=== PATIENT | male | born 1965 | race Caucasian/White ===

== ENCOUNTER 2016-11-21 08:17 | Outpatient (CLI) | payer MEDICARE, MEDICAID | END 2016-11-21 08:18 | disposition home or self-care (01) | DX: K80.20 Calculus of gallbladder without cholecystitis without obstruction (principal); R14.0 Abdominal distension (gaseous); R10.9 Unspecified abdominal pain; K21.9 Gastro-esophageal reflux disease without esophagitis ==

== ENCOUNTER 2016-11-26 08:29 | Day surgery (SDC) | payer MEDICARE, MEDICAID ==
[2016-11-26] MEDS ORDERED: LACTATED RINGERS 1,000 ML IV ONE (08:37)
[2016-11-26] MEDS ORDERED: fentaNYL 250 MCG/5 ML VIAL IVP ONE (10:24)
[2016-11-26] MEDS ORDERED: MIDAZOLAM 2 MG/2 ML VIAL IVP ONE (10:24)
[2016-11-26] MEDS ORDERED: diphenhydrAMINE INJ 50 MG/ML VIAL IVP ONE (10:24)
== END 2016-11-26 08:30 | disposition home or self-care (01) ==
PROC: 0DB98ZX Excision of Duodenum, Via Natural or Artificial Opening Endoscopic, Diagnostic (ICD-10-PCS; 2016-11-26)
PROC: 0DB68ZX Excision of Stomach, Via Natural or Artificial Opening Endoscopic, Diagnostic (ICD-10-PCS; 2016-11-26)
PROC: 0DBN8ZZ Excision of Sigmoid Colon, Via Natural or Artificial Opening Endoscopic (ICD-10-PCS; principal; 2016-11-26 09:30)
PROC: 0DBE8ZX Excision of Large Intestine, Via Natural or Artificial Opening Endoscopic, Diagnostic (ICD-10-PCS; 2016-11-26 09:30)
DX: R10.9 Unspecified abdominal pain (principal); D12.5 Benign neoplasm of sigmoid colon; K57.30 Diverticulosis of large intestine without perforation or abscess without bleeding; K21.9 Gastro-esophageal reflux disease without esophagitis; I10 Essential (primary) hypertension
CPT/HCPCS: 43239; 45380; 45385; J3010; J7120

== ENCOUNTER 2017-07-30 06:40 | Outpatient (CLI) | payer MEDICARE, MEDICAID | END 2017-07-30 06:41 | disposition home or self-care (01) | LOC: LAB.WCP 06:40 | PROVIDERS: ATTEND Family Medicine | DX: B83.9 Helminthiasis, unspecified (principal) | CPT/HCPCS: 87177; 87209 ==

== ENCOUNTER 2020-05-30 14:35 | Outpatient (CLI) | payer MEDICARE, MEDICAID ==
[2020-05-30 18:25] LABS: BASOPHILS # (AUTO) 0.1 10^3/uL (0.0-0.1); EOSINOPHILS # (AUTO) 0.4 10^3/uL (0.0-0.7); HGB - HEMOGLOBIN 16.6 g/dL (14.0-18.0); LYMPHOCYTES # (AUTO) 2.4 10^3/uL (1.5-3.5); LYMPHOCYTES % (AUTO) 31.9 %; MEAN CORPUSCULAR HEMOGLOBIN 33.1 pg (27.0-31.0); MEAN CORPUSCULAR HGB CONC 33.9 g/dL (32.0-36.0); MEAN CORPUSCULAR VOLUME 97.8 fL (80.0-94.0); MEAN PLATELET VOLUME 10.3 fL (7.4-11.4); MONOCYTES # (AUTO) 0.5 10^3/uL (0.0-1.0); MONOCYTES % (AUTO) 6.8 %; NEUTROPHILS # (AUTO) 4.1 10^3/uL (1.5-6.6); PLT - PLATELET COUNT 318 10^3/uL (130-450); RED BLOOD COUNT 5.01 10^6/uL (4.70-6.10); RED CELL DISTRIBUTION WIDTH 13.1 % (12.0-15.0); WHITE BLOOD COUNT 7.4 x10^3/uL (4.8-10.8)
[2020-05-30 19:05] LABS: ALBUMIN 4.3 g/dL (3.2-5.5); ALBUMIN/GLOBULIN RATIO 1.5 (1.0-2.2); BILIRUBIN,TOTAL 0.4 mg/dL (0.2-1.0); CALCIUM 9.2 mg/dL (8.5-10.3); TOTAL PROTEIN 7.2 g/dL (6.7-8.2)
[2020-05-31 15:48] LABS: HEPATITIS C ANTIBODY NON-REACTIVE (NON-REACTIVE)
== END 2020-05-30 23:59 | disposition home or self-care (01) ==
LOC: LAB.WCP 14:35
PROVIDERS: ATTEND Physician Assistant
DX: I10 Essential (primary) hypertension (principal); R60.9 Edema, unspecified; Z12.5 Encounter for screening for malignant neoplasm of prostate; R06.09 Other forms of dyspnea; Z86.59 Personal history of other mental and behavioral disorders
CPT/HCPCS: 36415; 80053; 83880; 85025; 86803; G0103; 84153

== ENCOUNTER 2022-09-28 12:07 | Emergency (ER) | payer MEDICAID, MEDICARE ==
[2022-09-28 13:19] LABS: BASOPHILS # (AUTO) 0.1 10^3/uL (0.0-0.1); EOSINOPHILS # (AUTO) 0.5 10^3/uL (0.0-0.7); EOSINOPHILS % (AUTO) 6.9 %; LYMPHOCYTES # (AUTO) 2.2 10^3/uL (1.5-3.5); LYMPHOCYTES % (AUTO) 27.4 %; MEAN CORPUSCULAR HEMOGLOBIN 31.6 pg (27.0-31.0); MEAN CORPUSCULAR HGB CONC 33.3 g/dL (32.0-36.0); MEAN CORPUSCULAR VOLUME 94.7 fL (80.0-94.0); MEAN PLATELET VOLUME 9.5 fL (7.4-11.4); MONOCYTES # (AUTO) 0.4 10^3/uL (0.0-1.0); MONOCYTES % (AUTO) 5.5 %; NEUTROPHILS # (AUTO) 4.6 10^3/uL (1.5-6.6); NEUTROPHILS % (AUTO) 59.1 %; PLT - PLATELET COUNT 347 10^3/uL (130-450); RED BLOOD COUNT 5.07 10^6/uL (4.70-6.10); RED CELL DISTRIBUTION WIDTH 13.7 % (12.0-15.0); WHITE BLOOD COUNT 7.9 x10^3/uL (4.8-10.8)
[2022-09-28 13:33] LABS: ALBUMIN 4.2 g/dL (3.2-5.5); ALBUMIN/GLOBULIN RATIO 1.2 (1.0-2.2); BILIRUBIN,TOTAL 0.8 mg/dL (0.2-1.0); CALCIUM 9.9 mg/dL (8.5-10.3); CREATININE 1.1 mg/dL (0.6-1.2); POTASSIUM 3.8 mmol/L (3.5-5.0); TOTAL PROTEIN 7.8 g/dL (6.7-8.2)
--- NOTE | 2022-09-28 13:52 | XRAY Report ---
PROCEDURE: Chest 1 View X-Ray INDICATIONS: Chest Pain TECHNIQUE: One view of the chest was acquired. COMPARISON: None. FINDINGS: Surgical changes and devices: None. Lungs and pleura: No pleural effusions or pneumothorax. Lungs are clear. Mediastinum: Mild tortuosity of the thoracic aorta. Cardiac silhouette is within normal limits in si ze. Bones and chest wall: No suspicious bony lesions. Overlying soft tissues appear unremarkable. IMPRESSION: No acute cardiopulmonary abnormality. Reviewed by: Benson Patel MD on 09/28/2022 1:50 PM PST Approved by: Benson Patel MD on 09/28/2022 1:50 PM PST Station ID: [id number]
[2022-09-28 15:20] VITALS: BP 176/119
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
== END 2022-09-28 15:26 | disposition home or self-care (01) ==
LOC: ED 12:07
DX: J44.1 Chronic obstructive pulmonary disease with (acute) exacerbation (principal); K21.9 Gastro-esophageal reflux disease without esophagitis; Z91.138 Patient's unintentional underdosing of medication regimen for other reason; Y63.6 Underdosing and nonadministration of necessary drug, medicament or biological substance; Y82.9 Unspecified medical devices associated with adverse incidents
CPT/HCPCS: 36415; 80053; 83690; 83880; 84484; 85025; 93005; 99283; 99284

== ENCOUNTER 2024-02-19 16:57 | Inpatient (IN) | payer MEDICARE ==
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
[2024-02-19 17:46] LABS: BASOPHILS % (AUTO) 0.2 %; EOSINOPHILS % (AUTO) 0.2 %; HGB - HEMOGLOBIN 16.7 g/dL (14.0-18.0); LYMPHOCYTES % (AUTO) 4.2 %; MEAN CORPUSCULAR HEMOGLOBIN 32.1 pg (27.0-31.0); MEAN CORPUSCULAR HGB CONC 32.7 g/dL (32.0-36.0); MEAN CORPUSCULAR VOLUME 98.1 fL (80.0-94.0); MEAN PLATELET VOLUME 9.6 fL (7.4-11.4); MONOCYTES % (AUTO) 5.3 %; NEUTROPHILS % (AUTO) 89.2 %; PLT - PLATELET COUNT 303 10^3/uL (130-450); RED CELL DISTRIBUTION WIDTH 13.4 % (12.0-15.0); WHITE BLOOD COUNT 28.8 x10^3/uL (4.8-10.8)
[2024-02-19] MEDS: IPRATROPIUM/ALBUTEROL 3 ML NEB INH STA (17:54)
[2024-02-19 18:10] LABS: TROPONIN I HIGH SENSITIVITY 44.1 ng/L (2.3-19.7)
[2024-02-19 18:11] LABS: ALBUMIN 4.2 g/dL (3.2-5.5); ALBUMIN/GLOBULIN RATIO 1.4 (1.0-2.2); BILIRUBIN,TOTAL 1.9 mg/dL (0.2-1.0); CALCIUM 9.8 mg/dL (8.5-10.3); POTASSIUM 4.1 mmol/L (3.5-4.5); TOTAL PROTEIN 7.2 g/dL (6.4-8.9)
[2024-02-19 18:27] LABS: PLATELET ESTIMATE, MANUAL NORMAL (130-450,000) (NORMAL); PLATELET MORPHOLOGY NORMAL APPEARANCE (NORMAL); RBC MORPHOLOGY (MULTIPLE) NORMAL APPEARANCE (NORMAL)
[2024-02-19 18:28] LABS: DIFFERENTIAL COMMENT MANUAL=AUTO DIFF
--- NOTE | 2024-02-19 18:30 | XRAY Report ---
PROCEDURE: Chest 1V INDICATIONS: Chest Pain TECHNIQUE: One view of the chest was acquired. COMPARISON: 09/28/2022. FINDINGS: Surgical changes and devices: None. Lungs and pleura: No pleural effusions or pneumothorax. Left midlung opacity. Mediastinum: Mediastinal contours appear normal. Heart size is normal. Bones and chest wall: No suspicious bony lesions. Overlying soft tissues appear unremarkable. IMPRESSION: Left midlung opacity concerning for pneumonia. Recommend follow-up radiograph in 6-8 weeks to ensure resolution. Reviewed by: Po Martinez MD on 02/19/2024 6:29 PM PDT Approved by: Po Martinez MD on 02/19/2024 6:29 PM PDT Station ID: [id number]
[2024-02-19 18:31] LABS: LYMPHOCYTES # (AUTO) 1.2 10^3/uL (1.5-3.5); MONOCYTES # (AUTO) 1.5 10^3/uL (0.0-1.0); NEUTROPHILS # (AUTO) 25.7 10^3/uL (1.5-6.6)
[2024-02-19 18:32] LABS: BASOPHILS # (AUTO) 0.1 10^3/uL (0.0-0.1); EOSINOPHILS # (AUTO) 0.1 10^3/uL (0.0-0.7)
[2024-02-19] MEDS: cefTRIAXone 1 GM VIAL IVP STA (18:53)
[2024-02-19] MEDS: SODIUM CHLORIDE 0.9% 1,000 ML IV STA ×2 (18:53→20:57)
[2024-02-19] MEDS: AZITHROMYCIN INJ 500 MG in SODIUM CHLORIDE 0.9% 250 ML IV STA (18:53)
[2024-02-19] MEDS: MORPHINE 2 MG/ML CARPUJECT IVP STA ×2 (19:27→23:34)
[2024-02-19 21:06] LABS: B. PARAPERTUSSIS- RESP PCR PAN NOT DETECTED; B. PERTUSSIS- RESP PCR PANEL NOT DETECTED; C. PNEUMONIAE- RESP PCR PANEL NOT DETECTED; CORONAVIRUS 229E-RESP PCR NOT DETECTED; CORONAVIRUS HKU1-RESP PCR NOT DETECTED; CORONAVIRUS NL63-RESP PCR NOT DETECTED; CORONAVIRUS OC43-RESP PCR NOT DETECTED; HUMAN METAPNEUMOVIRUS NOT DETECTED; INFLUENZA A- RESP PCR PANEL NOT DETECTED; INFLUENZA B - RESP PCR PANEL NOT DETECTED; M. PNEUMONIAE- RESP PCR PANEL NOT DETECTED; PARAINFLUENZA VIRUS 1 NOT DETECTED; PARAINFLUENZA VIRUS 2 NOT DETECTED; PARAINFLUENZA VIRUS 3 NOT DETECTED; PARAINFLUENZA VIRUS 4 NOT DETECTED; RHINOVIRUS/ENTEROVIRUS NOT DETECTED; RSV- RESP PCR PANEL NOT DETECTED; SARS-CoV-2 -RESP PCR PANEL NOT DETECTED
[2024-02-19] MEDS ORDERED: SODIUM CHLORIDE FLUSH 0.9% 10 ML SYRINGE IVP PRN (21:11)
--- NOTE | 2024-02-19 21:27 | HISTORY & PHYSICAL EXAMINATION ---
Chief Complaint - Chief Complaint Chief Complaint: cough History of Present Illness - History of Present Illness HPI Comment/Other: 58 y old male with PMH HTN, Tobacco abuse, COPD , not on oxygen presented to ER with c/o fever, cough, congestion, shortness of breath and left sided chest pain since yesterday. Denies hedache, nausea, vomiting, symptoms On presentation, pt was afebrile, tachycardic and hypoxic Labs showed WBC 28 CXR showed left lung infiltrate In ER, pt was given IVF, IV Abx Pt is admitted due to acute hypoxic respiratory failure, due to pneumonia History - Past Medical History Cardiovascular: reports: Hypertension Respiratory: reports: COPD Endocrine/Autoimmune: reports: None GI: reports: None : reports: None HEENT: reports: Chronic vision loss Psych: reports: None Musculoskeletal: reports: Chronic back pain Derm: reports: None MRSA Hx?: No - Past Surgical History HEENT: reports: Other - POLST Patient has POLST: No Meds/Allgy - Home Medications Home Medications: Ambulatory Orders Medication Instructions Recorded Confirmed Albuterol Sulfate [Proair Hfa 2 inhaler INH PRN PRN 11/26/16 11/26/16 Inhaler] Lisinopril/Hydrochlorothiazide 10 cap PO DAILY 11/26/16 11/26/16 [Lisinopril-Hctz 10-12.5 mg Tab] Meloxicam [Mobic] 15 mg PO DAILY 11/26/16 11/26/16 Omeprazole Magnesium [Prilosec] 20 mg PO DAILY 11/26/16 11/26/16 Albuterol Sulf [Ventolin Hfa 1 - 2 puffs INH Q4HR PRN #1 each 09/28/22 Inhaler] Doxycycline [Vibramycin] 100 mg PO BID #14 tablet 09/28/22 Fluticasone/Salmeterol [Advair 1 each IH BID #1 each 09/28/22 250-50 Diskus] Lisinopril [Zestril] 20 mg PO DAILY #30 tablet 09/28/22 Omeprazole 40 mg PO DAILY #30 cap 09/28/22 amLODIPine [Norvasc] 5 mg PO DAILY #30 tablet 09/28/22 predniSONE [Deltasone] 20 mg PO [id number] #21 tab 09/28/22 - Allergies Allergies/Adverse Reactions: Allergies Allergy/AdvReac Type Severity Reaction Status Date / Time No Known Allergies Allergy Unknown Verified 02/19/24 17:01 Review of Systems - Other Findings Other Findings: 10 points systems were reviewed and were negative except mentioned in HPI Exam - Vital Signs Vital Signs: Vital Signs x48h Temp Pulse Resp BP Pulse Ox O2 Flow Rate 02/19/24 21:00 92 25 H 115/82 H 92 2 02/19/24 19:04 123 H 26 H 126/85 H 90 L 2 02/19/24 17:58 79 19 02/19/24 17:01 36.8 C 120 H 24 142/95 H 88 L - Physical Exam General Appearance: positive: Mild distress ENT: positive: ENT inspection nml Neck: positive: Nml inspection Respiratory: positive: Breath sounds nml Cardiovascular: positive: Tachycardia Abdomen: positive: Non-tender, Nml bowel sounds Skin: positive: No rash Neurologic/Psychiatric: positive: Oriented x3, Motor nml Conclusion/Plan - Lab Results Fish Bones: 02/19/24 17:35 02/19/24 17:35 - Other Other Results/Comments: A; Acute hypoxic respiratory failure Pneumonia SIRS Chest pain, could be due to pneumonia Leukocytosis HTN Tobacco abuse COPD Plan; Admit in tele Oxygen via NC Follow cultures Start NS @ 100 cc/h Start rocephin and zithromax iv Repeat CBC, CMP in am Duo nebs q6h Cardiac monitoring Seriel cardiac enzymes Echo Cont lisinopril Supportive care DVT prophylaxic: SCD Full code Pt is admitted as inpatient as more than 2 midnight stay is expected
[2024-02-19] MEDS: SODIUM CHLORIDE 0.9% 1,000 ML IV SCH (22:16)
[2024-02-19] MEDS ORDERED: MORPHINE 10 MG/ML VIAL IVP ONE (22:55)
[2024-02-19] MEDS: SODIUM CHLORIDE FLUSH 0.9% 10 ML SYRINGE IVP SCH (23:41)
[2024-02-19] MEDS: MORPHINE 2 MG/ML CARPUJECT IVP SCH (23:41)
[2024-02-19] MEDS: ONDANSETRON 4 MG/2 ML VIAL IVP PRN (23:53)
[2024-02-20 05:44] LABS: ALBUMIN 3.7 g/dL (3.2-5.5); ALBUMIN/GLOBULIN RATIO 1.4 (1.0-2.2); BILIRUBIN,TOTAL 1.7 mg/dL (0.2-1.0); CALCIUM 8.8 mg/dL (8.5-10.3); POTASSIUM 4.3 mmol/L (3.5-4.5); TOTAL PROTEIN 6.4 g/dL (6.4-8.9)
[2024-02-20 05:50] LABS: BASOPHILS # (AUTO) 0.1 10^3/uL (0.0-0.1); BASOPHILS % (AUTO) 0.3 %; EOSINOPHILS # (AUTO) 0.1 10^3/uL (0.0-0.7); EOSINOPHILS % (AUTO) 0.4 %; HCT - HEMATOCRIT 46.5 % (42.0-52.0); HGB - HEMOGLOBIN 15.1 g/dL (14.0-18.0); LYMPHOCYTES # (AUTO) 2.4 10^3/uL (1.5-3.5); LYMPHOCYTES % (AUTO) 8.7 %; MEAN CORPUSCULAR HEMOGLOBIN 32.9 pg (27.0-31.0); MEAN CORPUSCULAR HGB CONC 32.5 g/dL (32.0-36.0); MEAN CORPUSCULAR VOLUME 101.3 fL (80.0-94.0); MONOCYTES # (AUTO) 1.8 10^3/uL (0.0-1.0); MONOCYTES % (AUTO) 6.4 %; NEUTROPHILS # (AUTO) 22.9 10^3/uL (1.5-6.6); NEUTROPHILS % (AUTO) 83.5 %; PLT - PLATELET COUNT 235 10^3/uL (130-450); RED BLOOD COUNT 4.59 10^6/uL (4.70-6.10); RED CELL DISTRIBUTION WIDTH 13.7 % (12.0-15.0); WHITE BLOOD COUNT 27.4 x10^3/uL (4.8-10.8)
[2024-02-20 05:50] LABS: TROPONIN I HIGH SENSITIVITY 65.3 ng/L (2.3-19.7)
[2024-02-20 06:58] LABS: DIFFERENTIAL COMMENT MANUAL=AUTO DIFF; PLATELET ESTIMATE, MANUAL NORMAL (130-450,000) (NORMAL); PLATELET MORPHOLOGY NORMAL APPEARANCE (NORMAL)
[2024-02-20] MEDS: IPRATROPIUM/ALBUTEROL 3 ML NEB INH SCH (06:58)
[2024-02-20] MEDS: ACETAMINOPHEN 325 MG TABLET PO PRN (07:39)
[2024-02-20] MEDS: cefTRIAXone 1 GM in SODIUM CHLORIDE 0.9% MINIBAG 100 ML IV SCH (08:10)
[2024-02-20] MEDS: lisinopriL 5 MG TABLET PO SCH (08:20)
--- NOTE | 2024-02-20 08:33 | PROVIDER PROGRESS NOTE ---
Subjective - Prog Note Date Prog Note Date: 02/20/24 Prog Note Time: 08:31 - Subjective Pt reports feeling: Improved Subjective: The pt reports that his breathing is getting better since admission with IV abx. He is not coughing much but has pain at the left lateral rib area. Pain med is helping him. He drinks a pint of vodka per day but he will stop drinking. No acute overnight events. No other related symptoms. No other modifying factors. Objective - Vital Signs/Intake & Output Reviewed Vital Signs: Yes Vital Signs: Vital Signs x48h Temp Pulse Pulse Pulse Resp BP Pulse Ox 02/20/24 07:41 37 C 109 H 18 125/98 H 95 02/20/24 06:59 84 22 02/20/24 05:12 36.7 C 117 H 22 109/76 97 O2 Flow Rate 02/20/24 07:41 2 02/20/24 06:59 3 02/20/24 05:12 2 Intake & Output: Intake & Output 02/17/24 02/18/24 02/19/24 02/20/24 23:59 23:59 23:59 23:59 Intake Total 0677.477 9651.333 Output Total 275 420 Balance 9476.419 0076.333 - Objective General Appearance: positive: No acute distress Eyes Bilateral: positive: EOMI Neck: positive: Nml inspection, No JVD Respiratory: positive: Chest non-tender, No respiratory distress, Other (Few crackles at bases) Cardiovascular: positive: Regular rate & rhythm, No murmur Abdomen: positive: Non-tender, Nml bowel sounds, No distention Skin: positive: Color nml, No rash, Warm Extremities: positive: Non-tender, Full ROM, Nml appearance Neurologic/Psychiatric: positive: Oriented x3, Mood/affect nml - Lab Results Fish Bones: 02/20/24 05:42 02/20/24 04:52 Other Labs: Lab Results x24hrs 02/20/24 02/20/24 02/19/24 Range/Units 05:42 04:52 19:58 WBC 27.4 H (4.8-10.8) x10^3/uL RBC 4.59 L (4.70-6.10) 10^6/uL Hgb 15.1 (14.0-18.0) g/dL Hct 46.5 (42.0-52.0) % MCV 101.3 H (80.0-94.0) fL MCH 32.9 H (27.0-31.0) pg MCHC 32.5 (32.0-36.0) g/dL RDW 13.7 (12.0-15.0) % Plt Count 235 (130-450) 10^3/uL MPV 10.0 (7.4-11.4) fL Neut # (Auto) 22.9 H (1.5-6.6) 10^3/uL Lymph # (Auto) 2.4 (1.5-3.5) 10^3/uL Dunn # (Auto) 1.8 H (0.0-1.0) 10^3/uL Eos # (Auto) 0.1 (0.0-0.7) 10^3/uL Baso # (Auto) 0.1 (0.0-0.1) 10^3/uL Absolute Nucleated RBC 0.00 x10^3/uL Band Neuts % (Manual) Not Reportable Abnorm Lymph % (Manual) Not Reportable Nucleated RBC % 0.0 /100WBC Neutrophils # (Manual) Not Reportable Lymphocytes # (Manual) Not Reportable Monocytes # (Manual) Not Reportable Eosinophils # (Manual) Not Reportable Basophils # (Manual) Not Reportable Differential Comment MANUAL=AUTO DIFF Platelet Estimate NORMAL (130-450,000) (NORMAL) Platelet Morphology NORMAL APPEARANCE (NORMAL) RBC Morph Micro Appear (NORMAL) Sodium 132 L (135-145) mmol/L Potassium 4.3 (3.5-4.5) mmol/L Chloride 101 (101-111) mmol/L Carbon Dioxide 23 (21-32) mmol/L Anion Gap 8.0 (6-13) BUN 16 (6-20) mg/dL Creatinine 1.0 (0.6-1.3) mg/dL Estimated GFR (MDRD) 77 L (>89) Glucose 121 H (74-104) mg/dL Lactic Acid 1.4 (0.5-2.2) mmol/L Calcium 8.8 (8.5-10.3) mg/dL Total Bilirubin 1.7 H (0.2-1.0) mg/dL AST 19 (10-42) IU/L ALT 16 (10-60) IU/L Alkaline Phosphatase 38 L (42-121) IU/L Troponin I High Sens 65.3 H* (2.3-19.7) ng/L Total Protein 6.4 (6.4-8.9) g/dL Albumin 3.7 (3.2-5.5) g/dL Globulin 2.7 (2.1-4.2) g/dL Albumin/Globulin Ratio 1.4 (1.0-2.2) Lipase (11-82) U/L Nasal Adenovirus (PCR) Nasal B. parapertussis DNA (PCR) Nasal Coronavir 229E PCR Nasal Coronavir HKU1 PCR Nasal Coronavir NL63 PCR Nasal Coronavir OC43 PCR Nasal Enterovir/Rhinovir PCR Nasal Influenza B PCR Nasal Influenza A PCR Nasal Parainfluen 1 PCR Nasal Parainfluen 2 PCR Nasal Parainfluen 3 PCR Nasal Parainfluen 4 PCR Nasal RSV (PCR) Nasal B.pertussis DNA PCR Nasal C.pneumoniae (PCR) Vin Human Metapneumo PCR Nasal M.pneumoniae (PCR) Nasal SARS-CoV-2 (PCR) 02/19/24 02/19/24 02/19/24 Range/Units 19:58 19:36 17:35 WBC (4.8-10.8) x10^3/uL RBC (4.70-6.10) 10^6/uL Hgb (14.0-18.0) g/dL Hct (42.0-52.0) % MCV (80.0-94.0) fL MCH (27.0-31.0) pg MCHC (32.0-36.0) g/dL RDW (12.0-15.0) % Plt Count (130-450) 10^3/uL MPV (7.4-11.4) fL Neut # (Auto) (1.5-6.6) 10^3/uL Lymph # (Auto) (1.5-3.5) 10^3/uL Dunn # (Auto) (0.0-1.0) 10^3/uL Eos # (Auto) (0.0-0.7) 10^3/uL Baso # (Auto) (0.0-0.1) 10^3/uL Absolute Nucleated RBC x10^3/uL Band Neuts % (Manual) Abnorm Lymph % (Manual) Nucleated RBC % /100WBC Neutrophils # (Manual) Lymphocytes # (Manual) Monocytes # (Manual) Eosinophils # (Manual) Basophils # (Manual) Differential Comment Platelet Estimate (NORMAL) Platelet Morphology (NORMAL) RBC Morph Micro Appear (NORMAL) Sodium 133 L (135-145) mmol/L Potassium 4.1 (3.5-4.5) mmol/L Chloride 100 L (101-111) mmol/L Carbon Dioxide 23 (21-32) mmol/L Anion Gap 10.0 (6-13) BUN 16 (6-20) mg/dL Creatinine 1.0 (0.6-1.3) mg/dL Estimated GFR (MDRD) 77 L (>89) Glucose 131 H (74-104) mg/dL Lactic Acid (0.5-2.2) mmol/L Calcium 9.8 (8.5-10.3) mg/dL Total Bilirubin 1.9 H (0.2-1.0) mg/dL AST 18 (10-42) IU/L ALT 21 (10-60) IU/L Alkaline Phosphatase 43 (42-121) IU/L Troponin I High Sens 35.2 H* 44.1 H* (2.3-19.7) ng/L Total Protein 7.2 (6.4-8.9) g/dL Albumin 4.2 (3.2-5.5) g/dL Globulin 3.0 (2.1-4.2) g/dL Albumin/Globulin Ratio 1.4 (1.0-2.2) Lipase 11 (11-82) U/L Nasal Adenovirus (PCR) NOT DETECTED Nasal B. parapertussis DNA (PCR) NOT DETECTED Nasal Coronavir 229E PCR NOT DETECTED Nasal Coronavir HKU1 PCR NOT DETECTED Nasal Coronavir NL63 PCR NOT DETECTED Nasal Coronavir OC43 PCR NOT DETECTED Nasal Enterovir/Rhinovir PCR NOT DETECTED Nasal Influenza B PCR NOT DETECTED Nasal Influenza A PCR NOT DETECTED Nasal Parainfluen 1 PCR NOT DETECTED Nasal Parainfluen 2 PCR NOT DETECTED Nasal Parainfluen 3 PCR NOT DETECTED Nasal Parainfluen 4 PCR NOT DETECTED Nasal RSV (PCR) NOT DETECTED Nasal B.pertussis DNA PCR NOT DETECTED Nasal C.pneumoniae (PCR) NOT DETECTED Vin Human Metapneumo PCR NOT DETECTED Nasal M.pneumoniae (PCR) NOT DETECTED Nasal SARS-CoV-2 (PCR) NOT DETECTED 02/19/24 Range/Units 17:35 WBC 28.8 H (4.8-10.8) x10^3/uL RBC 5.20 (4.70-6.10) 10^6/uL Hgb 16.7 (14.0-18.0) g/dL Hct 51.0 (42.0-52.0) % MCV 98.1 H (80.0-94.0) fL MCH 32.1 H (27.0-31.0) pg MCHC 32.7 (32.0-36.0) g/dL RDW 13.4 (12.0-15.0) % Plt Count 303 (130-450) 10^3/uL MPV 9.6 (7.4-11.4) fL Neut # (Auto) 25.7 H (1.5-6.6) 10^3/uL Lymph # (Auto) 1.2 L (1.5-3.5) 10^3/uL Dunn # (Auto) 1.5 H (0.0-1.0) 10^3/uL Eos # (Auto) 0.1 (0.0-0.7) 10^3/uL Baso # (Auto) 0.1 (0.0-0.1) 10^3/uL Absolute Nucleated RBC 0.00 x10^3/uL Band Neuts % (Manual) Not Reportable Abnorm Lymph % (Manual) Not Reportable Nucleated RBC % 0.0 /100WBC Neutrophils # (Manual) Not Reportable Lymphocytes # (Manual) Not Reportable Monocytes # (Manual) Not Reportable Eosinophils # (Manual) Not Reportable Basophils # (Manual) Not Reportable Differential Comment MANUAL=AUTO DIFF Platelet Estimate NORMAL (130-450,000) (NORMAL) Platelet Morphology NORMAL APPEARANCE (NORMAL) RBC Morph Micro Appear NORMAL APPEARANCE (NORMAL) Sodium (135-145) mmol/L Potassium (3.5-4.5) mmol/L Chloride (101-111) mmol/L Carbon Dioxide (21-32) mmol/L Anion Gap (6-13) BUN (6-20) mg/dL Creatinine (0.6-1.3) mg/dL Estimated GFR (MDRD) (>89) Glucose (74-104) mg/dL Lactic Acid (0.5-2.2) mmol/L Calcium (8.5-10.3) mg/dL Total Bilirubin (0.2-1.0) mg/dL AST (10-42) IU/L ALT (10-60) IU/L Alkaline Phosphatase (42-121) IU/L Troponin I High Sens (2.3-19.7) ng/L Total Protein (6.4-8.9) g/dL Albumin (3.2-5.5) g/dL Globulin (2.1-4.2) g/dL Albumin/Globulin Ratio (1.0-2.2) Lipase (11-82) U/L Nasal Adenovirus (PCR) Nasal B. parapertussis DNA (PCR) Nasal Coronavir 229E PCR Nasal Coronavir HKU1 PCR Nasal Coronavir NL63 PCR Nasal Coronavir OC43 PCR Nasal Enterovir/Rhinovir PCR Nasal Influenza B PCR Nasal Influenza A PCR Nasal Parainfluen 1 PCR Nasal Parainfluen 2 PCR Nasal Parainfluen 3 PCR Nasal Parainfluen 4 PCR Nasal RSV (PCR) Nasal B.pertussis DNA PCR Nasal C.pneumoniae (PCR) Vin Human Metapneumo PCR Nasal M.pneumoniae (PCR) Nasal SARS-CoV-2 (PCR) - Diagnostic Imaging Diagnostic Imaging Results: positive: Final report reviewed ABX Reporting Has patient been on IV antibiotics over the past 48 hours?: Yes Sepsis Event Note (H) - Evaluation Current Stage of Sepsis: Sepsis Possible source of Sepsis: positive: Pulmonary Confirmed Source and Organism (if known) of Sepsis: Pneumonia Sepsis Associated Organ Dysfunction: None - Sepsis Criteria Sepsis Criteria: Recorded Heart Rate greater than 90 bpm, Recorded Respiratory Rate greater than 20, Respiratory: Increasing oxygen requirements, WBC count greater than 12,000 or less than 4000 Assessment/Plan - Problem List (1) Sepsis Impression: This is sepsis from pneumonia. Sepsis parameters are improving. Qualifiers: Sepsis type: sepsis due to unspecified organism Sepsis acute organ dysfunction status: with acute organ dysfunction Severe sepsis acute organ dysfunction type: acute respiratory failure Acute respiratory failure type: with hypoxia Severe sepsis shock status: without septic shock Qualified Code(s): A41.9 - Sepsis, unspecified organism; R65.20 - Severe sepsis without septic shock; J96.01 - Acute respiratory failure with hypoxia (2) Acute hypoxemic respiratory failure Impression: This is from pneumonia and sepsis. O2 support. (3) Hyponatremia Impression: This is from some dehydration and sepsis. Repeat BMP in am. (4) Pneumonia Impression: Stabilizing. Will continue with IV abx. Qualifiers: Pneumonia type: due to unspecified organism Laterality: left Lung l ocation: unspecified part of lung Qualified Code(s): J18.9 - Pneumonia, unspecified organism (5) Type 2 SC (myocardial infarction) Impression: This is from sepsis, hypoxemic respiratory failure and pneumonia. No evidence of ACS at this time. Will put him on ASA. (6) Hyperbilirubinemia Impression: Probably from his chronic alcohol abuse. Repeat CMP in 2 days. (7) Alcohol abuse Impression: The pt drinks 1 pint of vodka per day. CIWA. His last CIWA score was 4. Will use PO ativan 1mg Q2h as needed for CIWAS 8-14. The pt will stop drinking.
--- NOTE | 2024-02-20 08:33 | PHARMACY PROGRESS NOTE ---
- Best Possible Medication History Admit Date and Time: 02/19/242110 Processed by: Pharmacy Medications reviewed in ED?: No Medication History completed: Yes Patient Interview: Completed Secondary Source(s): Pharmacy records, Insurance records As the person ultimately responsible for medication therapy, providers are able to order a medication from an existing home medication list in [facility] via the "Reconcile Routine" prior to Confirmation of that medication by ground crewman mission support. Such practice is discouraged except when the physician, in their clinical judgment, deems that a medical need exists for a medication without regard to previous use.
[2024-02-20] MEDS: AZITHROMYCIN INJ 500 MG in SODIUM CHLORIDE 0.9% 250 ML IV SCH (09:18)
[2024-02-20] MEDS: LORazepam 1 MG TABLET PO PRN (11:29)
[2024-02-20] MEDS: BUDESONIDE 0.5 MG/2 ML NEB INH SCH (20:15)
[2024-02-20] MEDS: FORMOTEROL FUMARATE NEB 20 MCG/2 ML INH SCH (20:16)
--- NOTE | 2024-02-20 22:58 | PROVIDER PROGRESS NOTE ---
Shampooer Note - Shampooer Note Shampooer Note: RN paged "Admitted 02/18 for SIRS, PNA & chest pain. Woke up complaining of upper back pain between the shoulder blades 07/05. Already given Acetaminophen 650mg, but pt is requesting a stronger pain medicine for this. Acetaminophen was the only medicine ordered for pain at this time. Thank you." give norco. CTR imaging for better insight into pain Navya Miranda
[2024-02-20] MEDS: HYDROcod/ACETAM 5/325 MG TABLET PO PRN (23:46)
--- NOTE | 2024-02-21 02:29 | CT Report ---
PROCEDURE: Chest WO INDICATIONS: back pain between shoulder blader TECHNIQUE: A CT scan of the chest was performed. Intravenous contrast media was not administered. Images were re corded and evaluated at appropriate window settings. Reformats: axial MIP of the chest, coronal and s agittal. For radiation dose reduction, the following was used: automated exposure control, adjustment of mA and/or kV according to patient size. COMPARISON: Chest plain film 02/19/2024. FINDINGS: Image quality: Diagnostic. Chest wall and lower neck: No thyroid nodule which requires sonographic follow up. No axillary or sup raclavicular adenopathy by size. Lungs and pleura: As was seen with plain film imaging there is a pattern of dense pneumonia within th e left upper lobe, with several air bronchograms extending into this area of consolidation. A slight degree of patchy airspace disease is seen at the lateral right lower lobe and posterior aspect of the right upper lobe. Additionally, minimal posterior left lung base alveolar consolidation is associate d. No pleural effusion found, however. No pneumothorax. No suspicious pulmonary nodules which requir e follow up. Mediastinum: Heart size is normal. No pericardial effusion. No large vessel abnormality. No mediastin al adenopathy by size criteria. Bones: No aggressive osseous abnormality. Upper Abdomen: Unremarkable. IMPRESSION: Patchy bilateral pneumonia pattern, but most prominent at the lateral aspect of the left upper lobe. No malignancy identified. Reviewed by: Melvin Torres MD on 02/21/2024 2:27 AM PDT Approved by: Melvin Torres MD on 02/21/2024 2:27 AM PDT Station ID: [id number]
[2024-02-21 05:38] LABS: BASOPHILS # (AUTO) 0.1 10^3/uL (0.0-0.1); BASOPHILS % (AUTO) 0.4 %; EOSINOPHILS # (AUTO) 0.2 10^3/uL (0.0-0.7); EOSINOPHILS % (AUTO) 1.4 %; HCT - HEMATOCRIT 44.2 % (42.0-52.0); LYMPHOCYTES # (AUTO) 1.7 10^3/uL (1.5-3.5); LYMPHOCYTES % (AUTO) 10.8 %; MEAN CORPUSCULAR HEMOGLOBIN 31.5 pg (27.0-31.0); MEAN CORPUSCULAR HGB CONC 31.7 g/dL (32.0-36.0); MEAN CORPUSCULAR VOLUME 99.5 fL (80.0-94.0); MEAN PLATELET VOLUME 9.7 fL (7.4-11.4); MONOCYTES # (AUTO) 1.1 10^3/uL (0.0-1.0); MONOCYTES % (AUTO) 6.7 %; NEUTROPHILS # (AUTO) 12.8 10^3/uL (1.5-6.6); NEUTROPHILS % (AUTO) 80.4 %; PLT - PLATELET COUNT 219 10^3/uL (130-450); RED BLOOD COUNT 4.44 10^6/uL (4.70-6.10); RED CELL DISTRIBUTION WIDTH 13.4 % (12.0-15.0); WHITE BLOOD COUNT 15.9 x10^3/uL (4.8-10.8)
[2024-02-21 05:57] LABS: CALCIUM 8.9 mg/dL (8.5-10.3); CREATININE 0.9 mg/dL (0.6-1.3); POTASSIUM 4.4 mmol/L (3.5-4.5)
[2024-02-21] MEDS: PANTOPRAZOLE 40 MG TABLET PO SCH (06:58)
[2024-02-21 07:32] VITALS: BP 159/107
[2024-02-21 07:43] VITALS: O2SAT 95
[2024-02-21] MEDS: AZITHROMYCIN 250 MG TABLET PO SCH (08:37)
[2024-02-21] MEDS: lisinopriL 20 MG TABLET PO SCH (08:37)
--- NOTE | 2024-02-21 08:53 | Discharge Plan ---
Discharge Plan Problem Reviewed?: Yes Disposition: Home, Self Care Condition: Stable Prescriptions: cefuroxime axetiL [Ceftin] 500 mg PO Q12H #14 tablet Azithromycin [Zithromax] 500 mg PO DAILY #2 tab Diet: Regular Activity Restrictions: Activity as Tolerated Shower Restrictions: No Driving Restrictions: No Weight Bearing: Full Weight Instruction Topics: Pneumonia, Addiction Alcohol Health Concerns: Stop drinking. Plan of Treatment: Take abx as prescribed and take probiotic. No Smoking: If you smoke, Please STOP! Call for help. Follow-up with: Nancy Moore MD [Primary Care Provider] - 1 Week
--- NOTE | 2024-02-21 08:57 | DISCHARGE SUMMARY ---
"Discharge Summary Admit Date: 02/19/24 Discharge Date: 02/21/24 Discharging Provider: Juan M Alex Primary Care Provider: Nancy Moore Code Status: Attempt Resuscitation Condition at Discharge: Stable Discharge Disposition: 01 Home, Self Care - DIAGNOSES Admission Diagnoses: Pneumonia, sepsis, acute hypoxemic respiratory failure, Type 2 MO, hyponatremia, hyperbilirubinemia, alcohol abuse Discharge Diagnoses with Status of Each Condition: Pneumonia with sepsis: Stable Acute hypoxemic respiratory failure: Improved. Type 2 MO: Stable. Hyponatremia: Resolved. Hyperbilirubinemia: Improving. Alcohol abuse: Stable. - HPI History of Present Illness: Per H&P of admitting provider, 58 y old male with PMH HTN, Tobacco abuse, COPD , not on oxygen presented to ER with c/o fever, cough, congestion, shortness of breath and left sided chest pain since yesterday. Denies hedache, nausea, vomiting, symptoms On presentation, pt was afebrile, tachycardic and hypoxic Labs showed WBC 28 CXR showed left lung infiltrate In ER, pt was given IVF, IV Abx Pt is admitted due to acute hypoxic respiratory failure, due to pneumonia - CONSULTS | PROCEDURES Consultations: None Procedures: None - HOSPITAL COURSE Hospital Course: Sepsis Pneumonia Upon admission he was started on IV abx. The pt has been improving and upon discharge he will continue with azithromycin and ceftin. Acute hypoxemic respiratory failure This is from pneumonia and sepsis and he required O2 support initially. The pt was able to come off O2 support and his O2 sat is between 92-95% on RA. Hyponatremia This is from some dehydration and sepsis. This has been improved. Type 2 MO (myocardial infarction) This is from sepsis, hypoxemic respiratory failure and pneumonia. There was no evidence of ACS at this time. Hyperbilirubinemia This is probably from his chronic alcohol abuse. This can be followed with his PCP. Alcohol abuse The pt drinks 1 pint of vodka per day. Upon admission he was put on CIWA. His CIWA has been low and the pt is willing to stop drinking. - ALLERGIES Allergies/Adverse Reactions: Allergies Allergy/AdvReac Type Severity Reaction Status Date / Time No Known Allergies Allergy Unknown Verified 02/19/24 17:01 - MEDICATIONS Home Medications: Ambulatory Orders Medication Instructions Recorded Confirmed Omeprazole Magnesium [Prilosec] 20 mg PO DAILY 11/26/16 02/20/24 Fluticasone/Salmeterol [Advair 1 each IH BID #1 each 09/28/22 02/20/24 250-50 Diskus] Albuterol Sulf [Ventolin Hfa 2 - 3 puffs INH BID PRN 02/20/24 02/20/24 Inhaler] Lisinopril [Zestril] 40 mg PO DAILY 02/20/24 02/20/24 Azithromycin [Zithromax] 500 mg PO DAILY #2 tab 02/21/24 cefuroxime axetiL [Ceftin] 500 mg PO Q12H #14 tablet 02/21/24 - PHYSICAL EXAM AT DISCHARGE General Appearance: positive: No acute distress Eyes Bilateral: positive: EOMI Neck: positive: Nml inspection, No JVD Respiratory: positive: Chest non-tender, No respiratory distress, Other (Few scattered crackles) Cardiovascular: positive: Regular rate & rhythm, No murmur Abdomen: positive: Non-tender, Nml bowel sounds, No distention - LABS Result Diagrams: 02/21/24 05:29 02/21/24 05:29 - DIAGNOSTIC IMAGING Diagnostic Imaging Results: Final report reviewed - SEPSIS Current Stage of Sepsis: Sepsis Possible source of Sepsis: Pulmonary Confirmed Source and Organism (if known) of Sepsis: Pneumonia Sepsis Associated Organ Dysfunction: Acute hypoxemic respiratory failure Sepsis Criteria: Recorded Heart Rate greater than 90 bpm, Recorded Respiratory Rate greater than 20, Respiratory: Increasing oxygen requirements, WBC count greater than 12,000 or less than 4000 - FOLLOW UP Follow Up: PCP in 1 week - TIME SPENT Time Spent in Discharge (Minutes): 45"
== END 2024-02-21 11:04 | disposition home or self-care (01) | DRG 871 ==
LOC: ED 16:57 → MS2 21:11
PROVIDERS: ADMIT Internal Medicine; ATTEND Internal Medicine
DX: A41.9 Sepsis, unspecified organism (principal); I21.A1 Myocardial infarction type 2; F17.200 Nicotine dependence, unspecified, uncomplicated; J18.9 Pneumonia, unspecified organism; R79.89 Other specified abnormal findings of blood chemistry; Z20.818 Contact with and (suspected) exposure to other bacterial communicable diseases; Z20.822 Contact with and (suspected) exposure to COVID-19; Z20.828 Contact with and (suspected) exposure to other viral communicable diseases; J96.01 Acute respiratory failure with hypoxia; E87.1 Hypo-osmolality and hyponatremia; J44.0 Chronic obstructive pulmonary disease with (acute) lower respiratory infection; E80.6 Other disorders of bilirubin metabolism; F10.10 Alcohol abuse, uncomplicated; I10 Essential (primary) hypertension; H54.7 Unspecified visual loss; G89.29 Other chronic pain; M54.9 Dorsalgia, unspecified; D72.829 Elevated white blood cell count, unspecified; R65.20 Severe sepsis without septic shock; M54.6 Pain in thoracic spine; Z79.51 Long term (current) use of inhaled steroids; Z79.52 Long term (current) use of systemic steroids; Z79.899 Other long term (current) drug therapy
CPT/HCPCS: 36415; 71045; 71250; 80048; 80053; 83605; 83690; 84484; 85025; 87633; 93005; 94640; 96365; 96375; 99285; A9270; J7626; J8499